=== PATIENT | male | born 1990 | race Caucasian/White ===

== ENCOUNTER 2025-06-25 19:40 | Emergency (ER) | payer OTHER, SELFPAY ==
[2025-06-25] MEDS ORDERED: Lidocaine 1% PF 5 ML VIAL ONE (20:23)
[2025-06-25] MEDS ORDERED: HYDROcodone/Acetaminophen 10/325 mg Tablet ONE (20:24)
[2025-06-25] MEDS ORDERED: CEFAZOLIN 1 GM VIAL ONE (20:40)
== END 2025-06-25 22:09 | disposition home or self-care (01) ==
LOC: ER/OP 19:40
DX: S62.637B Displaced fracture of distal phalanx of left little finger, initial encounter for open fracture (principal); W23.1XXA Caught, crushed, jammed, or pinched between stationary objects, initial encounter; Y99.0 Civilian activity done for income or pay
CPT/HCPCS: 96365; 96372; J0690; J2270